=== PATIENT | female | born 1950 | race Caucasian/White ===

== ENCOUNTER 2016-11-27 11:55 | Inpatient (IN) | payer MEDICARE ==
[~2016-11-27] VITALS: Ht 157.5 cm; Wt 58.7 kg
[2016-11-27 12:45] VITALS: BP 139/97
[2016-11-27] MEDS ORDERED: REMERON30 M1 PO (13:02)
[2016-11-27] MEDS ORDERED: SEROQUEL300 MG PO (13:02)
[2016-11-27] MEDS ORDERED: TRAZODONE100 MG PO (13:58)
[2016-11-27 14:14] LABS: BASO % 0.5 % (0.0-1.0); EOS # 0.1 10*3/uL (0.0-0.4); EOS % 1.5 % (1.0-4.0); HEMATOCRIT 39.5 % (37.0-47.0); LYMPH # 2.3 10*3/uL (1.3-4.4); LYMPH % 39.9 % (27.0-41.0); MEAN CELL VOLUME 95.2 fl (81.0-99.0); MEAN CORPUSCULAR HGB 31.3 pg (27.0-31.0); MEAN CORPUSCULAR HGB CONC 32.9 g/dl (33.0-37.0); MEAN PLATELET VOLUME 9.4 fl (9.6-12.3); MONO # 0.5 10*3/uL (0.1-1.0); MONO % 7.7 % (3.0-9.0); NEUT % 50.2 % (47.0-73.0); PLATELET COUNT AUTOMATED 251 10*3/uL (130-400); RED BLOOD COUNT 4.15 10*6/uL (4.10-5.10); RED CELL DISTRI WIDTH 12.9 % (0-14.5); WHITE BLOOD COUNT 5.9 10*3/uL (4.8-10.8)
[2016-11-27 14:21] LABS: PROTHROMBIN TIME 10.5 SECONDS (9.0-12.4)
[2016-11-27 14:22] LABS: BILIRUBIN NEGATIVE (NEGATIVE); BLOOD 1+ (NEGATIVE); CLARITY CLEAR (CLEAR); COLOR YELLOW (YELLOW); GLUCOSE NEGATIVE (NEGATIVE); KETONE NEGATIVE (NEGATIVE); LEUKO ESTERASE TRACE (NEGATIVE); NITRITE NEGATIVE (NEGATIVE); PH 5.5 (5.0-9.0); PROTEIN NEGATIVE (NEGATIVE); SPECIFIC GRAVITY 1.015 (1.005-1.030); UROBILINOGEN 0.2 E.U./dl (0.2-1.0)
[2016-11-27 14:29] LABS: ALBUMIN 3.6 gm/dl (3.1-4.5); ALKALINE PHOSPHATASE 76 U/L (45-117); BILIRUBIN, TOTAL 0.3 mg/dl (0.2-1.0); BUN 7 mg/dl (7-24); CARBON DIOXIDE 31 mmol/L (21-32); CHLORIDE 105 mmol/L (98-107); EST GLOM FILT AFRICAN AMERICAN > 60 ml/min; GLUCOSE 83 mg/dL (65-99); POTASSIUM 4.3 mmol/L (3.5-5.1); SGOT/AST 21 IU/L (3-35); SGPT/ALT 21 U/L (12-78); SODIUM 139 mmol/L (136-145); TOTAL PROTEIN 7.7 gm/dL (6.4-8.2)
[2016-11-27 14:30] LABS: MUCOUS TRACE; URINE REFLEX COMMENT YES (NO)
[2016-11-27 14:57] LABS: URINE AMPHETAMINES < 1000 (1000ng/ml); URINE BARBITURATES < 200 (200ng/ml); URINE COCAINE < 300 (300ng/ml)
[2016-11-27 16:00] VITALS: BP 133/79
[2016-11-27 21:12] VITALS: BP 129/99
[2016-11-28] VITALS: BP 100/70
[2016-11-28 04:00] VITALS: BP 110/82
[2016-11-28 08:00] VITALS: BP 116/74
[2016-11-28 12:00] VITALS: BP 108/82
[2016-11-28 16:31] VITALS: BP 130/71
[2016-11-28 20:21] VITALS: BP 127/96
[2016-11-29] VITALS: BP 104/58
[2016-11-29 08:00] VITALS: BP 116/62
[2016-11-29 16:00] VITALS: BP 135/85
[2016-11-29 20:00] VITALS: BP 128/83
[2016-11-30] VITALS: BP 118/73
[2016-11-30 06:50] LABS: BASO # 0.1 10*3/uL (0.0-0.1); BASO % 0.9 % (0.0-1.0); EOS # 0.2 10*3/uL (0.0-0.4); EOS % 3.6 % (1.0-4.0); HEMATOCRIT 39.1 % (37.0-47.0); HEMOGLOBIN 13.1 g/dl (12.0-16.0); LYMPH # 2.4 10*3/uL (1.3-4.4); LYMPH % 42.8 % (27.0-41.0); MEAN CELL VOLUME 92.7 fl (81.0-99.0); MEAN CORPUSCULAR HGB CONC 33.5 g/dl (33.0-37.0); MEAN PLATELET VOLUME 9.7 fl (9.6-12.3); MONO # 0.5 10*3/uL (0.1-1.0); MONO % 8.6 % (3.0-9.0); NEUT # 2.5 10*3/uL (2.3-7.9); NEUT % 43.9 % (47.0-73.0); PLATELET COUNT AUTOMATED 240 10*3/uL (130-400); RED BLOOD COUNT 4.22 10*6/uL (4.10-5.10); WHITE BLOOD COUNT 5.6 10*3/uL (4.8-10.8)
[2016-11-30 08:00] VITALS: BP 105/70
[2016-11-30] MEDS ORDERED: ATARAX,VISTARIL50 MG PO (10:28)
[2016-11-30] MEDS ORDERED: METHOCARBAMOL750 M1 PO (10:28)
[2016-11-30] MEDS ORDERED: ZOFRAN 4 MG ED2 TAB PO (10:28)
[2016-11-30] MEDS ORDERED: ROPINIROLE HYD0.5 MG PO (10:28)
== END 2016-11-30 13:50 | disposition home or self-care (01) | DRG 897 ==
LOC: 5E 11:55
PROVIDERS: Internal Medicine
DX: F11.23 Opioid dependence with withdrawal (principal); F33.9 Major depressive disorder, recurrent, unspecified; F41.9 Anxiety disorder, unspecified; F13.10 Sedative, hypnotic or anxiolytic abuse, uncomplicated; G47.00 Insomnia, unspecified; Z83.6 Family history of other diseases of the respiratory system; Z84.89 Family history of other specified conditions; Z79.899 Other long term (current) drug therapy